=== PATIENT | female | born 1980 | race Caucasian/White ===

== ENCOUNTER 2018-02-04 00:19 | Emergency (ER) | payer MEDICARE, MEDICAID, SELFPAY ==
[2018-02-04 00:25] VITALS: BP 153/87; PULSE 113; RESP 18; TEMP 37.1; O2SAT 97
--- NOTE | 2018-02-04 00:36 | DI.RAD.S_ITS ---
PROCEDURE: XR RIBS LT MIN 3V W CXR1V INDICATIONS: Rib pain after CPR. TECHNIQUE: 2 views of the left ribs were acquired, along with a single view chest. COMPARISON: None. FINDINGS: Surgical changes and devices: None. Bones and chest wall: No fractures or dislocations. No suspicious bony lesions. Overlying soft tissues appear unremarkable. Lungs and pleura: No pleural effusions or pneumothorax. Lungs appear clear. Mediastinum: Mediastinal contours appear normal. Heart size is normal. IMPRESSION: No fracture. No acute cardiopulmonary disease. Dictated by: Jack German M.D. on 02/04/2018 at 7:21 Approved by: Jack German M.D. on 02/04/2018 at 7:23
--- NOTE | 2018-02-04 00:42 | PC.NURSE ---
Apparently she overdosed on 0.25gram heroin tonight.She admitted to meth use this am also.(02/03/18.)
--- NOTE | 2018-02-04 01:19 | ED_ITS ---
HPI - Overdose General Chief Complaint: Toxicology Problem Stated Complaint: drug OD Time Seen by Provider: 02/04/18 00:30 Source: patient Mode of arrival: EMS Limitations: no limitations History of Present Illness HPI Narrative: The patient overdosed on heroin prior to arrival. She has been sober from heroin for 4 months. Anxiety, stress and other issues were bothering her. She dosed with heroin tonight. She apparently passed out. Bystander CPR was started by her friend, 911 was summoned. Police arrived and found her to have very shallow breathing. They administered Narcan. She was transported here by EMS. She is alert, awake and upset upon arrival. She is compliant with management and treatment. She denies recent illness. She takes citalopram, she has no other medications. She has taken nothing for intentional overdose. Related Data Allergies Allergy/AdvReac Type Severity Reaction Status Date / Time No Known Drug Allergies Allergy Verified 02/04/18 00:25 Review of Systems Constitutional Denies chills, Denies fever(s), Denies headache(s), Denies lethargy and Denies weakness Eyes Denies change in vision ENT Ears, Nose, Mouth, and Throat: Denies dysphagia, Denies headache(s) and Denies sore throat Cardiovascular Denies diaphoresis, Reports syncope, Denies rapid heart rate, Denies pedal edema , Denies edema, Denies leg edema, Denies radiating jaw, neck or arm pain, Denies dyspnea and Denies dyspnea on exertion Respiratory Denies cough, Denies dyspnea, Denies dyspnea on exertion and Denies wheezing Gastrointestinal Gastrointestinal: Denies dysphagia Musculoskeletal Denies back pain, Denies muscle weakness, Denies numbness and Denies tingling Integumentary/Breasts Denies pruritus, Denies erythema, Denies rash and Denies wounds Neurologic Denies confusion, Reports syncope, Denies headache(s), Denies numbness, Denies tingling and Denies weakness Psychiatric Denies confusion Allergic/Immunologic Denies wheezing [facility] Medical History Heroin abuse (Acute) Exam Initial Vital Signs Initial Vital Signs: Vital Signs Temperature 98.7 F 02/04/18 00:25 Pulse Rate 113 H 02/04/18 00:25 Respiratory Rate 18 02/04/18 00:25 Blood Pressure 153/87 H 02/04/18 00:25 Pulse Oximetry 97 02/04/18 00:25 Const General: cooperative, well developed, anxious and No diaphoretic Nutritional Appearance: well nourished Orientation: alert, awake, oriented x3 and not confused HENMT Head: normal to inspection Mouth: oral mucosae normal Throat: posterior oropharynx normal and posterior oropharynx abnormal Eyes Conjunctivae: conjunctivae normal Sclera: sclerae normal Pupils: PERRL EOM: EOM intact bilaterally Neck Neck: trachea midline, supple and No JVD Thyroid: thyroid normal Resp Effort & Inspection: normal respiratory effort, able to speak in complete sentences, no respiratory distress and no use of accessory muscles Auscultation: clear to auscultation bilaterally, no rales, no rhonchi and no wheezes Cardio Rate: regular rate Rhythm: regular rhythm Heart Sounds: no click, no gallops, no murmurs and no rubs Pulses: normal peripheral pulses GI Inspection: non-distended Palpation: soft, no hepatosplenomegaly, No guarding, No pulsatile mass and No tender Auscultation: normal bowel sounds Back/Spine/Pelvis Back: No CVA tenderness Skin General: No excoriations, No hypertrophy, No jaundice, No mottling and No purpura Neuro General: alert, awake and oriented x3 Cranial Nerves: CN's II-XI intact bilaterally Cognition: normal cognition Speech: speech normal Gait: normal gait Motor: muscle tone normal throughout Sensory Exam: no sensory deficits noted Psych Appearance: grossly normal Mental Status: mental status grossly normal Speech and Movement: speech and movement normal Mood: congruent mood and No angry Course Orders Ordered: ED Orders 02/04/18 00:36 XR ribs LT min 3V w CXR1V Stat EKG-12 Lead Stat Discontinued Medications Ketorolac Tromethamine (Toradol) 30 mg IV NOW ONE Stop: 02/04/18 01:20 Last Admin: 02/04/18 02:02 Dose: 30 mg Vital Signs - 8 hr 02/04/18 00:25 02/04/18 01:57 02/04/18 02:30 Temperature 98.7 F 98.7 F Pulse Rate 113 H 108 H 108 H Respiratory Rate 18 20 20 Blood Pressure 153/87 H 153/87 H Blood Pressure [Left Arm] 155/82 H Pulse Oximetry 97 98 98 MDM - Overdose Imaging Data Chest x-ray: My impression: This is a chest x-ray with left ribs. Normal lung markings. Normal cardiac silhouette. No evidence of bony fracture. ECG Data Attestation: I personally reviewed and interpreted this ECG as follows: Discharge Plan Departure Patient Disposition: Home, Self-Care Clinical Impression: Accidental heroin overdose, Chest wall contusion Discharge Date/Time: 02/04/18 02:35 Interventions: ED Discharge Assessment Last Done: 02/04/18 02:29 Instructions: Contusion Activity Restrictions/Additional Instructions: Advil 3 tablets every 6 hr as needed for pain. I would recommend you seek further counseling, or rehab services if necessary to maintain sobriety. I will give you a referral to call for assistance if you desire. Referrals: [facility] [Outside]
[2018-02-04 01:57] VITALS: BP 155/82; PULSE 108; RESP 20; O2SAT 98
[2018-02-04] MEDS: KETOROLAC 60 MG/2 ML VIAL 30 MG IV (02:02)
[2018-02-04 02:30] VITALS: BP 153/87; PULSE 108; RESP 20; TEMP 37.1; O2SAT 98
== END 2018-02-04 02:35 | disposition home or self-care (01) ==
PROVIDERS: Emergency Provider Emergency Medicine
DX: T40.1X1A Poisoning by heroin, accidental (unintentional), initial encounter (principal); S20.219A Contusion of unspecified front wall of thorax, initial encounter; R55 Syncope and collapse
CPT/HCPCS: 71101; 93005; 96374; 99282; 99284; J1885

== ENCOUNTER 2018-02-05 19:44 | Emergency (ER) | payer MEDICARE, MEDICAID, SELFPAY ==
[2018-02-05 19:45] VITALS: BP 115/61; PULSE 82; RESP 18; TEMP 36.7; O2SAT 97
--- NOTE | 2018-02-05 20:03 | ED_ITS ---
HPI - Psych General Chief Complaint: Toxicology Problem Stated Complaint: ETOH intoxication Time Seen by Provider: 02/05/18 19:49 Source: EMS Mode of arrival: EMS Limitations: no limitations History of Present Illness HPI Narrative: 37-year-old female, tearful and disheveled brought by EMS after notification by police. She was seen laying in the grass by the side of the road and EMS was called by PD for evaluation. Patient states that she is suicidal and tried last night to overdose on heroin but was revived by her friends/EMS She continues to be suicidal. She has been admitted at psychiatric facilities ([place]) as recently as September. She does not want to speak to a DCR. Patient is supposed to take psychiatric medications (Lexapro, Gabapentin, Klonopin), but has not taken them in some time because she often will stop when she feels fine while medicated MD complaint: suicidal ideation and feels depressed Onset (ago): day(s) Duration: constant History of same: Yes Relieving factors: none Context: recent drug abuse and not taking psychiatric medications Associated psychiatric symptoms: depression and suicidal ideation Associated symptoms: denies other symptoms Treatments prior to arrival: none If self harm: admits thoughts of self harm Related Data Allergies Allergy/AdvReac Type Severity Reaction Status Date / Time No Known Drug Allergies Allergy Verified 02/04/18 00:25 Review of Systems Review of Systems All systems reviewed & are unremarkable except as noted in HPI and below Constitutional Denies chills, Denies fever(s), Denies lethargy and Denies weakness Eyes Denies change in vision, Denies eye discharge, Denies irritation and Denies loss of vision ENT Ears, Nose, Mouth, and Throat: Denies change in voice, Denies neck pain and Denies sore throat Cardiovascular Denies chest pain, Denies irregular heart rhythm, Denies lightheadedness, Denies palpitations, Denies dyspnea, Denies dyspnea on exertion and Denies orthopnea Respiratory Denies cough, Denies dyspnea, Denies dyspnea on exertion and Denies wheezing Gastrointestinal Gastrointestinal: Denies abdominal pain, Denies change in bowel habits, Denies diarrhea, Denies nausea and Denies vomiting Genitourinary Denies hematuria, Denies flank pain, Denies urinary incontinence and Denies urinary urgency Musculoskeletal Denies neck pain Integumentary/Breasts Denies pruritus, Denies erythema, Denies rash and Denies wounds Neurologic Denies confusion, Denies loss of vision and Denies weakness Psychiatric Denies anxiety, Denies confusion, Reports depression, Denies homicidal ideation and Reports suicidal ideation Endocrine Denies palpitations Hematologic/Lymphatic Denies easy bruising Allergic/Immunologic Denies wheezing PENDING SALE TO [facility] Medical History Heroin abuse (Acute) Exam Narrative Exam Narrative: Disheveled, tearful 37-year-old female in obvious distress Initial Vital Signs Initial Vital Signs: Vital Signs Temperature 98.0 F 02/05/18 19:45 Pulse Rate 82 02/05/18 19:45 Respiratory Rate 18 02/05/18 19:45 Blood Pressure 115/61 02/05/18 19:45 Pulse Oximetry 97 02/05/18 19:45 Const General: cooperative, No well groomed, in distress and anxious Nutritional Appearance: well nourished and obese Orientation: alert, awake, oriented x3 and not confused HENMT Head: normal to inspection Ears: hearing grossly normal bilaterally Nose: external nose normal Face and sinus: normal facial exam Teeth and gingiva: poor dentition Eyes General: appearance normal, both eyes and all related structures Eyelids: eyelids normal Conjunctivae: conjunctivae normal Sclera: sclerae normal Pupils: PERRL EOM: EOM intact bilaterally Neck Neck: normal visual inspection, trachea midline, No lymphadenopathy, No midline deformity and No JVD Lymphatic: No lymphedema Resp Effort & Inspection: normal respiratory effort, able to speak in complete sentences, no respiratory distress and no use of accessory muscles Auscultation: clear to auscultation bilaterally, no rales, no rhonchi and no wheezes GI Inspection: non-distended Palpation: soft, no hepatosplenomegaly, No guarding, No pulsatile mass and No tender Auscultation: normal bowel sounds Back/Spine/Pelvis Back: No CVA tenderness Cervical Spine: cervical ROM normal and No pain with cervical ROM Thoracic/Lumbar Spine: thoracic and lumbar spine normal to inspection Neuro General: alert, awake and oriented x3 Cognition: normal cognition Speech: speech normal Gait: normal gait Extrem General: full ROM, no clubbing, cyanosis or edema, no pedal edema and no calf tenderness Psych Appearance: disheveled Speech and Movement: agitated Mood: anxious mood Affect: irritable affect Attitude: belligerent Thought Content: suicidality Judgment: fair Course Orders Ordered: Discontinued Medications Acetaminophen (Tylenol) 325 mg PO Q6HR PRN PRN Reason: As Needed for Fever/Mild Pain Last Admin: 02/06/18 09:35 Dose: 325 mg Sodium Chloride (Normal Saline 0.9%) 1,000 mls @ 150 mls/hr IV CONT JOHNNY Last Infusion: 02/06/18 06:31 Dose: 150 mls/hr Admin: 02/05/18 20:16 Dose: 150 mls/hr Ondansetron HCl (Zofran) 4 mg IV Q4HR PRN PRN Reason: Nausea And Vomiting Last Admin: 02/06/18 03:03 Dose: 4 mg Reevaluation(s) Reevaluation #1: patient breathalizer down to 84, she states she just wants to leave so she can get some heroin so she can , she states she hates herself. When asked, she states she does not want any help. Call to DCR as patient has an active plan, recent attempt, and refuses help Time: 00:44 Reevaluation #2: patient has had lengthy evaluation by DCR. She has a conditional acceptance at [facility] under voluntary conditions. They need current BAL and Urine Preg. Time: 06:13 Reevaluation #3: accepted at [facility]. Calling for transfer ambulance. Patient remains voluntary Time: 07:13 Vital Signs - 8 hr 02/06/18 00:00 02/06/18 01:00 02/06/18 01:30 Pulse Rate 72 74 81 Blood Pressure [Right Arm] 114/58 L 104/48 L 124/54 H Pulse Oximetry 96 100 92 02/06/18 02:00 02/06/18 02:30 02/06/18 03:00 Pulse Rate 85 78 Blood Pressure [Right Arm] 127/60 H 123/77 H 126/65 H Pulse Oximetry 98 100 02/06/18 03:30 02/06/18 04:00 02/06/18 04:30 Pulse Rate Blood Pressure [Right Arm] 106/58 L 119/55 L 131/61 H Pulse Oximetry 02/06/18 05:00 02/06/18 05:25 02/06/18 06:00 Pulse Rate Blood Pressure [Right Arm] 109/55 L 116/61 124/58 H Pulse Oximetry 02/06/18 07:00 Pulse Rate Blood Pressure [Right Arm] 116/47 L Pulse Oximetry MDM - Psych Lab Data Result diagrams: 02/05/18 19:55 02/05/18 19:55 Lab Results 02/05/18 02/05/18 02/05/18 Range/Units 19:55 19:55 20:01 WBC 6.6 (4.5-11.0) X10^3/uL RBC 4.40 (4.0-5.2) X10^6/uL Hgb 9.6 L (12.0-16.0) g/dL Hct 30.3 L (36-46) % MCV 69.0 L (80-100) fL MCH 21.9 L (26-34) PG MCHC 31.7 (30-36) % RDW 16.3 H (11.6-14.8) % Plt Count 370 (150-400) X10^3/uL Neut % (Auto) 57.9 (50-75) % Lymph % (Auto) 31.2 (25-40) % Stearns % (Auto) 7.6 (3-14) % Eos % (Auto) 2.7 (2-4) % Baso % (Auto) 0.6 (0-2) % Neut # (Auto) 3800 (3875-4169) /uL RBC Morphology Not Reportable Hypochromasia 2+ H Anisocytosis 2+ H Microcytosis 2+ H Sodium 143 (137-145) mmol/L Potassium 3.5 (3.4-5.1) mmol/L Chloride 108 H (98-107) mmol/L Carbon Dioxide 20 L (22-32) mmol/L BUN 14 (7-17) mg/dL Creatinine 0.70 (0.52-1.04) mg/dL Estimated GFR > 60.0 (>60) mL/min BUN/Creatinine Ratio 20.0 (6-22) Glucose 98 (70-100) mg/dL Lactate 2.4 H (0.7-2.1) mmol/L Calcium 8.2 L (8.4-10.2) mg/dL Total Bilirubin 0.3 (0.2-1.3) mg/dL Conjugated Bilirubin 0.0 (0.0-0.3) md/dL Unconjugated Bilirubin 0.0 (0.0-1.1) mg/dL AST 48 H (14-36) IU/L ALT 30 (9-52) IU/L Alkaline Phosphatase 82 (38-126) U/L Total Protein 7.2 (6.3-8.2) g/dL Albumin 4.0 (3.5-5.0) g/dL Globulin 3.2 (1.7-4.1) g/dL Albumin/Globulin Ratio 1.3 (1.0-2.8) Urine Test (Negative) Salicylates < 1.0 (<20) mg/dL Urine Opiates Screen (Negative) Ur Oxycodone Screen (Negative) Urine Methadone Screen (Negative) Acetaminophen < 10 L (10-30) ug/mL Ur Barbiturates Screen (Negative) U Tricyclic Antidepress (Negative) Ur Phencyclidine Scrn (Negative) Ur Amphetamines Screen (Negative) U Methamphetamines Scrn (Negative) Ur MDMA Scrn (Ecstasy) (Negative) U Benzodiazepines Scrn (Negative) Urine Cocaine Screen (Negative) U Marijuana (THC) Screen (Negative) Ethyl Alcohol 243 mg/dL 02/06/18 02/06/18 Range/Units 00:16 00:16 WBC (4.5-11.0) X10^3/uL RBC (4.0-5.2) X10^6/uL Hgb (12.0-16.0) g/dL Hct (36-46) % MCV (80-100) fL MCH (26-34) PG MCHC (30-36) % RDW (11.6-14.8) % Plt Count (150-400) X10^3/uL Neut % (Auto) (50-75) % Lymph % (Auto) (25-40) % Stearns % (Auto) (3-14) % Eos % (Auto) (2-4) % Baso % (Auto) (0-2) % Neut # (Auto) (6852-5696) /uL RBC Morphology Hypochromasia Anisocytosis Microcytosis Sodium (137-145) mmol/L Potassium (3.4-5.1) mmol/L Chloride (98-107) mmol/L Carbon Dioxide (22-32) mmol/L BUN (7-17) mg/dL Creatinine (0.52-1.04) mg/dL Estimated GFR (>60) mL/min BUN/Creatinine Ratio (6-22) Glucose (70-100) mg/dL Lactate (0.7-2.1) mmol/L Calcium (8.4-10.2) mg/dL Total Bilirubin (0.2-1.3) mg/dL Conjugated Bilirubin (0.0-0.3) md/dL Unconjugated Bilirubin (0.0-1.1) mg/dL AST (14-36) IU/L ALT (9-52) IU/L Alkaline Phosphatase (38-126) U/L Total Protein (6.3-8.2) g/dL Albumin (3.5-5.0) g/dL Globulin (1.7-4.1) g/dL Albumin/Globulin Ratio (1.0-2.8) Urine Test Negative (Negative) Salicylates (<20) mg/dL Urine Opiates Screen Negative (Negative) Ur Oxycodone Screen Negative (Negative) Urine Methadone Screen Negative (Negative) Acetaminophen (10-30) ug/mL Ur Barbiturates Screen Negative (Negative) U Tricyclic Antidepress Negative (Negative) Ur Phencyclidine Scrn Negative (Negative) Ur Amphetamines Screen Positive H (Negative) U Methamphetamines Scrn Positive H (Negative) Ur MDMA Scrn (Ecstasy) Negative (Negative) U Benzodiazepines Scrn Negative (Negative) Urine Cocaine Screen Negative (Negative) U Marijuana (THC) Screen Positive H (Negative) Ethyl Alcohol mg/dL Discharge Plan Departure Patient Disposition: Xfer Psychiatric Hosp Clinical Impression: Depression with suicidal ideation, Polysubstance (excluding opioids) dependence Discharge Date/Time: 02/06/18 09:25 Interventions: ED Discharge Assessment Last Done: 02/06/18 09:39
[2018-02-05] MEDS: SODIUM CHLORIDE 0.9% 1,000 ML 150 ML IV (20:16)
[2018-02-05 20:17] LABS: Add Manual Diff / Slide Review NO; Basophils Percent Auto 0.6 % (0-2); Eosinophils Percent Auto 2.7 % (2-4); Hematocrit 30.3 % (36-46); Hemoglobin 9.6 g/dL (12.0-16.0); Lymphocytes Percent Auto 31.2 % (25-40); Mean Corpuscular HGB Conc 31.7 % (30-36); Mean Corpuscular Hemoglobin 21.9 PG (26-34); Monocytes Percent Auto 7.6 % (3-14); Neutrophils Absolute Auto 3800 /uL (3000-5900); Neutrophils Percent Auto 57.9 % (50-75); Platelet Count 370 X10^3/uL (150-400); Red Cell Distribution Width 16.3 % (11.6-14.8); White Blood Cell Count 6.6 X10^3/uL (4.5-11.0)
[2018-02-05 20:28] LABS: Acetaminophen < 10 ug/mL (10-30); Alanine Aminotransferase 30 IU/L (9-52); Albumin Globulin Ratio 1.3 (1.0-2.8); Alkaline Phosphatase 82 U/L (38-126); Aspartate Aminotransferase 48 IU/L (14-36); Bilirubin Total 0.3 mg/dL (0.2-1.3); Blood Urea Nitrogen 14 mg/dL (7-17); Calcium 8.2 mg/dL (8.4-10.2); Carbon Dioxide 20 mmol/L (22-32); Chloride 108 mmol/L (98-107); Estimated Glomerular Filt Rate > 60.0 mL/min (>60); Ethanol (ETOH) 243 mg/dL; Globulin 3.2 g/dL (1.7-4.1); Glucose 98 mg/dL (70-100); HEMOLYSIS < 15 (0-50); Potassium 3.5 mmol/L (3.4-5.1); Salicylate < 1.0 mg/dL (<20); Sodium 143 mmol/L (137-145); Total Protein 7.2 g/dL (6.3-8.2)
[2018-02-05 20:32] VITALS: BP 103/50; PULSE 88; O2SAT 95
[2018-02-05 20:33] LABS: Lactate (Lactic Acid) 2.4 mmol/L (0.7-2.1)
[2018-02-05 20:53] LABS: Anisocytosis 2+; Hypochromasia 2+; Microcytosis 2+
--- NOTE | 2018-02-05 21:04 | PC.NURSE ---
rouses easily - resps easy
[2018-02-05 21:30] VITALS: BP 108/58; O2SAT 98
[2018-02-05 22:30] VITALS: BP 112/58; PULSE 83; O2SAT 98
[2018-02-06] VITALS (14 sets, daily range): BP systolic 104–131; BP diastolic 47–77; PULSE 72–85; RESP 14; O2SAT 92–100
[2018-02-06 00:18] LABS: Reflexed Lactate in 2 Hours Y
[2018-02-06 00:33] LABS: Urine Amphetamines Positive (Negative); Urine Barbiturates Negative (Negative); Urine Benzodiazepines Negative (Negative); Urine Cocaine Negative (Negative); Urine MDMA Negative (Negative); Urine Methadone Negative (Negative); Urine Methamphetamines Positive (Negative); Urine Morphine/Opi cutoff 2000 Negative (Negative); Urine Oxycodone Negative (Negative); Urine Phencyclidine Negative (Negative); Urine Tetrahydrocannabinol Positive (Negative); Urine Tricyclic Antidepressant Negative (Negative)
[2018-02-06] MEDS: ONDANSETRON 4 MG/2 ML INJ IV (03:03)
--- NOTE | 2018-02-06 03:05 | PC.NURSE ---
DCR from [facility] here to evaluate pt.
[2018-02-06 06:34] LABS: Pregnancy Test Urine Negative (Negative)
--- NOTE | 2018-02-06 07:28 | PC.NURSE ---
Report from Marybeth Augustin Patient in room with eyes closed, even respirations. NAD. Awaiting transfer. B-fast tray ordered
--- NOTE | 2018-02-06 08:15 | PC.NURSE ---
Patient eating breakfast without complaint. Ambulates to/from bathroom without assistance. Interactions/conversations with RN are appropriate and respectful. Pt. c/o soreness from CPR the other evening but no other complaints or needs at present.
[2018-02-06] MEDS: ACETAMINOPHEN 325 MG TABLET PO (09:35)
--- NOTE | 2018-02-06 09:37 | PC.NURSE ---
[id number] [place] here to get patient had to await paperwork due to network issues
== END 2018-02-06 09:25 ==
PROVIDERS: Emergency Provider Emergency Medicine
DX: F32.9 Major depressive disorder, single episode, unspecified (principal); F19.20 Other psychoactive substance dependence, uncomplicated; R45.851 Suicidal ideations
CPT/HCPCS: 36591; 80053; 80076; 80305; 80320; 80329; 81025; 82075; 83605; 85025; 96361; 96374; 99285; G0480; J2405